=== PATIENT | female | born 1980 | race Caucasian/White ===

== ENCOUNTER → 2016-10-04 | Outpatient (CLI) | payer OTHER ==
[~2016-10-04] VITALS: Ht 157.5 cm; Wt 98.9 kg
[~2016-10-04] MED LIST: NEXIUM 40MG40 MG PO; PERCOCET 325 MG1 TA2 PO; SYNTHROID 0.0.025 MG PO; SYNTHROID0.2 MG/TAB PO; ZOFRAN ODT4 MG PO
[2016-10-04 09:35] VITALS: BP 124/63; PULSE 76
== END ==
LOC: LIGHT 09:25
DX: E03.8 Other specified hypothyroidism (principal); E78.4 Other hyperlipidemia; E66.09 Other obesity due to excess calories; Z68.39 Body mass index [BMI] 39.0-39.9, adult

== ENCOUNTER → 2016-10-18 | Outpatient (CLI) | payer OTHER | LOC: LIGHT 10-17 08:48 | DX: E03.8 Other specified hypothyroidism (principal); E78.4 Other hyperlipidemia; E66.09 Other obesity due to excess calories; Z68.39 Body mass index [BMI] 39.0-39.9, adult ==

== ENCOUNTER → 2017-01-05 | Outpatient (CLI) | payer OTHER ==
[~2017-01-05] VITALS: Ht 157.5 cm; Wt 104.1 kg
[2017-01-05 15:26] VITALS: BP 118/76; PULSE 82
== END ==
LOC: LIGHT 11-03 11:13
DX: E03.8 Other specified hypothyroidism (principal); E78.4 Other hyperlipidemia; E66.8 Other obesity; Z68.41 Body mass index [BMI] 40.0-44.9, adult

== ENCOUNTER → 2017-02-09 | Outpatient (CLI) | payer OTHER ==
[~2017-02-09] VITALS: Ht 157.5 cm; Wt 102.1 kg
[2017-02-09 15:50] VITALS: BP 139/75; PULSE 63
== END ==
LOC: LIGHT 11:25
DX: E03.9 Hypothyroidism, unspecified (principal); E78.5 Hyperlipidemia, unspecified; E66.9 Obesity, unspecified; Z68.41 Body mass index [BMI] 40.0-44.9, adult; Z71.3 Dietary counseling and surveillance

== ENCOUNTER → 2017-03-16 | Outpatient (CLI) | payer OTHER ==
[~2017-03-16] VITALS: Ht 157.5 cm; Wt 102.1 kg
[2017-03-16 15:02] VITALS: BP 118/74; PULSE 79
== END ==
LOC: LIGHT 15:00
DX: E03.9 Hypothyroidism, unspecified (principal); E78.5 Hyperlipidemia, unspecified; E66.9 Obesity, unspecified; Z68.41 Body mass index [BMI] 40.0-44.9, adult; Z71.3 Dietary counseling and surveillance

== ENCOUNTER 2017-04-20 14:04 | Emergency (ER) | payer OTHER ==
[~2017-04-20] VITALS: Ht 157.5 cm; Wt 90.9 kg
[2017-04-20 14:09] VITALS: BP 123/83; TEMP 97.8
[2017-04-20 14:49] LABS: BASO # 0.1 (0.0-0.2); BASO % 0.7 % (0.0-2.0); EOS # 0.2 (0.0-0.7); EOS % 2.1 % (0-4.0); GRAN # 5.1 (1.4-6.5); GRAN % 63.5 % (42.2-75.2); HEMOGLOBIN 12.2 g/dl (12.5-16.0); LYMPH # 2.1 (1.2-3.4); LYMPH % 25.5 % (20.0-51.0); MEAN CELL VOLUME 91 fl (80.0-100.0); MEAN CORPUSCULAR HEMOGLOBIN 30 pg (27.0-31.0); MEAN CORPUSCULAR HGB CONC 33 g/dl (33.0-37.0); MEAN PLATELET VOLUME 9.6 fl (7.4-10.4); MONO # 0.6 (0.1-0.6); PLATELET COUNT 327 K/mm3 (130-400); RED BLOOD COUNT 4.04 M/mm3 (4.10-5.30); REDCELL DISTRIBUTION WIDTH-CV 13.1 % (11.5-14.5)
[2017-04-20 15:19] LABS: ADJUSTED CALCIUM 8.7 mg/dL (8.4-10.2); ALBUMIN 3.9 gm/dL (3.5-5.0); BILIRUBIN,TOTAL 0.4 mg/dL (0.0-1.0); CALCIUM 8.6 mg/dL (8.4-10.2); CREATININE, serum 0.88 mg/dL (0.52-1.25); HEMATOCRIT 36.9 % (37.0-47.0); POTASSIUM 3.7 mmol/L (3.4-5.0); TOTAL PROTEIN 7.3 gm/dL (6.4-8.2)
[2017-04-20] MEDS ORDERED: ZOFRAN ODT4 MG PO (16:12)
[2017-04-20 16:45] VITALS: PULSE 75
== END 2017-04-20 16:45 | disposition home or self-care (01) ==
LOC: COL.ER 14:04
PROVIDERS: Physician Assistant
DX: R11.0 Nausea (principal); R00.2 Palpitations; T38.1X5A Adverse effect of thyroid hormones and substitutes, initial encounter; E03.9 Hypothyroidism, unspecified

== ENCOUNTER 2017-12-15 08:32 | Emergency (ER) | payer OTHER ==
[~2017-12-15] VITALS: Ht 157.5 cm; Wt 98.2 kg
[2017-12-15 09:33] VITALS: BP 125/75; PULSE 85; TEMP 97.7
[2017-12-15] MEDS ORDERED: PRENATAL (09:43)
== END 2017-12-15 09:38 | disposition other institution (70) ==
LOC: COL.ER 08:32
DX: O26.893 Other specified pregnancy related conditions, third trimester (principal); S30.1XXA Contusion of abdominal wall, initial encounter; Z3A.35 35 weeks gestation of pregnancy; W08.XXXA Fall from other furniture, initial encounter

== ENCOUNTER 2017-12-15 09:50 | Outpatient (CLI) | payer OTHER ==
[~2017-12-15] VITALS: Ht 157.5 cm; Wt 98.6 kg
[~2017-12-15 09:50] MED LIST changes: +PRENATAL
[2017-12-15 09:52] VITALS: BP 125/75; PULSE 85; TEMP 97.7
[2017-12-15 10:00] VITALS: BP 125/75; PULSE 85; TEMP 97.7
[2017-12-15 11:00] VITALS: BP 123/78; PULSE 76
[2017-12-15 11:47] VITALS: BP 123/79; PULSE 81
== END 2017-12-15 12:00 | disposition home or self-care (01) ==
LOC: LDR 09:50 → LDRO 09:50
DX: O26.893 Other specified pregnancy related conditions, third trimester (principal); R10.30 Lower abdominal pain, unspecified; W08.XXXA Fall from other furniture, initial encounter; Z3A.35 35 weeks gestation of pregnancy
CPT/HCPCS: OP

== ENCOUNTER 2017-12-25 04:18 | Outpatient (CLI) | payer OTHER ==
[~2017-12-25] VITALS: Ht 157.5 cm; Wt 122.7 kg
[2017-12-25 04:35] VITALS: BP 117/79; PULSE 96
[2017-12-25 04:41] VITALS: BP 117/79; PULSE 96; TEMP 98
== END 2017-12-25 05:51 | disposition home or self-care (01) ==
LOC: LDRO 04:18
DX: O62.9 Abnormality of forces of labor, unspecified (principal); Z3A.36 36 weeks gestation of pregnancy

== ENCOUNTER 2018-01-01 11:38 | Inpatient (IN) | payer OTHER ==
[~2018-01-01] VITALS: Ht 154.9 cm; Wt 100.9 kg
[2018-01-15] VITALS (29 sets, daily range): BP systolic 108–134; BP diastolic 56–83; PULSE 59–86; TEMP 97.7–98.8
[2018-01-15 08:39] LABS: BASO % 0.5 % (0.0-2.0); EOS # 0.1 (0.0-0.7); EOS % 1.3 % (0-4.0); GRAN # 5.3 (1.4-6.5); GRAN % 67.2 % (42.2-75.2); HEMATOCRIT 28.3 % (37.0-47.0); HEMOGLOBIN 9.1 g/dl (12.5-16.0); LYMPH # 1.8 (1.2-3.4); LYMPH % 23.5 % (20.0-51.0); MEAN CELL VOLUME 85 fl (80.0-100.0); MEAN CORPUSCULAR HEMOGLOBIN 27 pg (27.0-31.0); MEAN CORPUSCULAR HGB CONC 32 g/dl (33.0-37.0); MEAN PLATELET VOLUME 10.9 fl (7.4-10.4); MONO # 0.6 (0.1-0.6); PLATELET COUNT 305 K/mm3 (130-400); RED BLOOD COUNT 3.34 M/mm3 (4.10-5.30); REDCELL DISTRIBUTION WIDTH-CV 14.4 % (11.5-14.5)
[2018-01-16 00:30] VITALS: BP 114/60; PULSE 60
[2018-01-16] MEDS ORDERED: IBU600 MG PO (09:05)
[2018-01-16] MEDS ORDERED: PERCOCET 325 MG1 TA2 PO (09:05)
== END 2018-01-16 15:20 | disposition home or self-care (01) | DRG 775 ==
LOC: LDR 01-15 06:26 → OB 01-15 07:18 → LDR 01-15 11:37 → OB 01-15 16:13
PROVIDERS: Obstetrics & Gynecology
PROC: 10E0XZZ Delivery of Products of Conception, External Approach (ICD-10-PCS; principal; 2018-01-15)
PROC: 0HQ9XZZ Repair Perineum Skin, External Approach (ICD-10-PCS; 2018-01-15)
PROC: 3E033VJ Introduction of Other Hormone into Peripheral Vein, Percutaneous Approach (ICD-10-PCS; 2018-01-15)
PROC: 10907ZC Drainage of Amniotic Fluid, Therapeutic from Products of Conception, Via Natural or Artificial Opening (ICD-10-PCS; 2018-01-15)
DX: O70.0 First degree perineal laceration during delivery (principal); Z3A.39 39 weeks gestation of pregnancy; Z37.0 Single live birth; Z23 Encounter for immunization; O99.283 Endocrine, nutritional and metabolic diseases complicating pregnancy, third trimester; E03.9 Hypothyroidism, unspecified
CPT/HCPCS: J1200; J2210; J2405; J2590; J7120

== ENCOUNTER 2018-01-21 16:53 | Emergency (ER) | payer OTHER ==
[~2018-01-21] VITALS: Ht 157.5 cm; Wt 93.5 kg
[~2018-01-21 16:53] MED LIST changes: +IBU600 MG PO
[2018-01-21 16:56] VITALS: TEMP 98.2
[2018-01-21 17:30] LABS: COLLECTION METHOD CLEAN CATCH
[2018-01-21 17:34] LABS: BASO % 0.5 % (0.0-2.0); EOS # 0.2 (0.0-0.7); EOS % 2.3 % (0-4.0); GRAN # 4.8 (1.4-6.5); GRAN % 62.4 % (42.2-75.2); LYMPH # 2.1 (1.2-3.4); LYMPH % 27.2 % (20.0-51.0); MEAN CELL VOLUME 85 fl (80.0-100.0); MEAN CORPUSCULAR HGB CONC 31 g/dl (33.0-37.0); MEAN PLATELET VOLUME 9.4 fl (7.4-10.4); MONO # 0.6 (0.1-0.6); MONO % 7.2 % (1.7-9.3); PLATELET COUNT 383 K/mm3 (130-400); RED BLOOD COUNT 3.62 M/mm3 (4.10-5.30); REDCELL DISTRIBUTION WIDTH-CV 14.9 % (11.5-14.5)
[2018-01-21 17:37] LABS: HEMATOCRIT 30.6 % (37.0-47.0); HEMOGLOBIN 9.6 g/dl (12.5-16.0); MEAN CORPUSCULAR HEMOGLOBIN 27 pg (27.0-31.0)
[2018-01-21 17:38] LABS: PH 6 (5-8); SQUAMOUS EPITHELIAL 0-2 /hpf; URINE APPEARANCE Clear; URINE BACTERIA None Seen /hpf; URINE BILIRUBIN Negative (NEGATIVE); URINE BLOOD 3+ (NEGATIVE); URINE COLOR Straw; URINE GLUCOSE Negative (NEGATIVE); URINE KETONE Negative (NEGATIVE); URINE LEUKOCYTE ESTERASE 1+ (NEGATIVE); URINE NITRATE Negative (NEGATIVE); URINE PROTEIN(semi-quant) Negative (NEGATIVE); URINE RBC 0-2 /hpf; URINE UROBILINOGEN Negative (NEGATIVE)
[2018-01-21 17:46] LABS: ALBUMIN 3.5 gm/dL (3.5-5.0); BILIRUBIN,TOTAL 0.3 mg/dL (0.0-1.0); C-REACTIVE PROTEIN 1.8 mg/dL (0.0-0.9); CALCIUM 9.1 mg/dL (8.4-10.2); CREATININE, serum 0.77 mg/dL (0.52-1.25); POTASSIUM 3.7 mmol/L (3.4-5.0); TOTAL PROTEIN 7.4 gm/dL (6.4-8.2)
[2018-01-21 18:12] VITALS: BP 124/79; PULSE 66
== END 2018-01-21 18:13 | disposition home or self-care (01) ==
LOC: COL.ER 16:53
PROVIDERS: Family Medicine
DX: O90.81 Anemia of the puerperium (principal); O72.1 Other immediate postpartum hemorrhage
CPT/HCPCS: J2405; J7030

== ENCOUNTER → 2018-07-12 | Outpatient (CLI) | payer OTHER ==
[~2018-07-12] VITALS: Ht 157.5 cm; Wt 96.8 kg
[~2018-07-12] MED LIST changes: +PHENTERMINE15 MG PO
[2018-07-12 16:33] VITALS: BP 106/70; PULSE 68
== END ==
LOC: LIGHT 07-05 09:22
DX: E03.9 Hypothyroidism, unspecified (principal); E78.5 Hyperlipidemia, unspecified; E66.3 Overweight; Z68.39 Body mass index [BMI] 39.0-39.9, adult; Z71.3 Dietary counseling and surveillance
CPT/HCPCS: G0463

== ENCOUNTER → 2018-08-02 | Outpatient (CLI) | payer OTHER ==
[~2018-08-02] VITALS: Ht 157.5 cm; Wt 95.3 kg
[2018-08-02 16:27] VITALS: BP 110/70; PULSE 78
== END ==
LOC: LIGHT 14:42
DX: E03.9 Hypothyroidism, unspecified (principal); E78.5 Hyperlipidemia, unspecified; E66.9 Obesity, unspecified; Z68.38 Body mass index [BMI] 38.0-38.9, adult; Z71.3 Dietary counseling and surveillance
CPT/HCPCS: G0463